=== PATIENT | male | born 1965 | race African-American/Black ===

== ENCOUNTER 2017-10-22 01:09 | Emergency (ER) | payer OTHER ==
[~2017-10-22] VITALS: Ht 188 cm; Wt 104.0 kg
[2017-10-22 01:12] VITALS: BP 122/67
== END 2017-10-22 02:45 | disposition left against medical advice (07) ==
LOC: ER 01:09
DX: Z53.21 Procedure and treatment not carried out due to patient leaving prior to being seen by health care provider (principal)

== ENCOUNTER 2018-01-16 19:38 | Emergency (ER) | payer OTHER ==
[~2018-01-16] VITALS: Ht 182.9 cm; Wt 90.9 kg
[2018-01-16] MEDS ORDERED: HALOPERIDOL LACTATE 5MG/ML VIAL IM STA (20:05)
[2018-01-16] MEDS ORDERED: SODIUM CHLORIDE 0.9% 1,000 ML IV ONE (20:26)
[2018-01-16 20:58] LABS: CLARITY URINE CLEAR (CLEAR); COLOR URINE YELLOW (YELLOW); KETONES URINE NEGATIVE (NEGATIVE); LEUKOCYTE ESTERASE URINE NEGATIVE (NEGATIVE); NITRITE URINE NEGATIVE (NEGATIVE); OCCULT BLOOD URINE NEGATIVE (NEGATIVE); PROTEIN URINE NEGATIVE (NEGATIVE); SPECIFIC GRAVITY URINE 1.007 (1.005-1.030); UROBILINOGEN URINE 0.2 E.U./dL (0.2-1.0)
[2018-01-16 21:16] LABS: *AMPHETAMINES SCREEN URINE PRESUMTIVE POSITIVE (NEGATIVE); *BARBITURATES SCREEN URINE NEGATIVE (NEGATIVE); *BENZODIAZEPINES SCREEN URINE NEGATIVE (NEGATIVE)
[2018-01-16 21:17] LABS: *COCAINE SCREEN URINE PRESUMTIVE POSITIVE (NEGATIVE); CANNABINOID URINE SCREEN NEGATIVE (NEGATIVE); METHADONE URINE SCREEN NEGATIVE (NEGATIVE); OPIATES URINE SCREEN NEGATIVE (NEGATIVE); PHENCYCLIDINE URINE SCREEN NEGATIVE (NEGATIVE)
[2018-01-16] MEDS ORDERED: POLYVINYL ALCOHOL OPHTH DROPS 15ML BOTHEYE PRN (22:45)
[2018-01-16 23:00] LABS: CHLORIDE 106 mEq/L (98-107)
[2018-01-16 23:02] LABS: BASOPHILS % 0.7 % (0.0-2.0); HEMATOCRIT. 39.4 % (42.0-52.0); HEMOGLOBIN. 13.4 g/dL (14.0-18.0); LYMPHOCYTES % 41.1 % (20.0-50.0); MEAN CORPUSCULAR HEMOGLOBIN 29.7 pg (28.0-32.0); MEAN CORPUSCULAR VOLUME 87.4 fL (80.0-94.0); MEAN PLATELET VOLUME 7.1 fl (7.4-10.4); MONOCYTES % 5.3 % (2.0-8.0); NEUTROPHILS % 51.9 % (40.0-76.0); PLATELET 207 x1000/uL (130-400); RED BLOOD CELL COUNT 4.51 mill/uL (4.7-6.1); RED CELL DISTRIBUTION WIDTH 14.5 % (11.6-14.6)
[2018-01-16 23:04] LABS: ETHANOL BLOOD 214 mg/dL
[2018-01-17 00:51] VITALS: BP 124/81
== END 2018-01-17 01:09 | disposition home or self-care (01) ==
LOC: ER 19:38
DX: F10.229 Alcohol dependence with intoxication, unspecified (principal); R11.10 Vomiting, unspecified; R45.1 Restlessness and agitation; Z78.1 Physical restraint status; Z91.013 Allergy to seafood; Y90.7 Blood alcohol level of 200-239 mg/100 ml
CPT/HCPCS: 36415; 80053; 80305; 81003; 82962; 85025; 99284; G0482; J7030; Z7610